=== PATIENT | female | born 1965 | race Caucasian/White ===

== ENCOUNTER 2016-11-15 06:01 | Emergency (ER) | payer BC ==
[~2016-11-15 06:01] MED LIST: ADVIL200 M1 PO; ASPIRIN81 MG PO; MULTIVITAMIN1 TAB PO; OMEGA 31 CAP PO; TOPAMAX50 MG PO
[2016-11-15] MEDS ORDERED: NEURONTIN100 M1 PO (06:18)
[2016-11-15] MEDS ORDERED: TOPROL XL25 M1 PO (06:18)
[2016-11-15] MEDS ORDERED: ULTRAM50 M1 PO (06:19)
[2016-11-15] MEDS ORDERED: PROGESTERONE100 M1 PO (06:19)
[2016-11-15 06:45] LABS: URINE BILIRUBIN NEGATIVE (NEG); URINE BLOOD LARGE (NEG); URINE GLUCOSE (UA) SMALL (NEG); URINE KETONE LARGE (NEG); URINE LEUKOCYTE ESTERASE POSITIVE (NEG); URINE NITRITE NEGATIVE (NEG); URINE PROTEIN MODERATE (NEG)
[2016-11-15 06:47] LABS: URINE APPEARANCE HAZY; URINE COLOR YELLOW
[2016-11-15 06:48] LABS: BASO % 0.2 % (0-2); HCT-HEMATOCRIT 44.9 % (34.0-49.0); HGB-HEMOGLOBIN 15.3 gm/dl (12.0-15.5); IMMATURE GRANULOCYTES ABSOLUTE 0.04 tho/cmm (0-0.03); IMMATURE GRANULOCYTES PERCENT 0.3 % (0-0.3); LYMPH % 6.9 % (20-45); MCH (MEAN CORPUSCULAR HGB) 30.1 pg (28.0-32.0); MCHC MEAN CORPUSCULAR HGB CONC 34.1 % (32.0-36.0); MCV (MEAN CELL VOLUME) 88.2 fl (82.0-96.0); MEAN PLATELET VOLUME 10.6 cmc (9.4-12.4); MONO % 4.9 % (0-12); MONOCYTE ABSOLUTE COUNT 0.7 tho/cmm (0.0-1.2); NEUTROPHILS % 87.7 % (40-80); PLATELET COUNT 305 tho/cmm (150-450); RED BLOOD COUNT 5.09 mil/cmm (4.00-5.20); WHITE BLOOD COUNT 13.7 tho/cmm (4.0-10.0)
[2016-11-15 08:14] LABS: ALBUMIN 3.4 g/dl (3.5-5.0); ALKALINE PHOSPHATASE 87 U/L (33-138); ALT/SGPT 32 U/L (12-78); ANION GAP 13 mmol/L (0-20); AST/SGOT 22 U/L (10-40); BILIRUBIN,TOTAL 0.3 mg/dl (0-1.5); BLOOD UREA NITROGEN 9 mg/dl (6-24); CALCIUM 8.9 mg/dl (8.5-10.5); CARBON DIOXIDE-VENOUS 25 mmol/L (22-32); CHLORIDE 106 mmol/l (96-110); CREATININE 0.54 mg/dl (0.50-1.10); GLUCOSE 96 mg/dL (70-110); LIPASE 111 U/L (73-393); POTASSIUM 3.7 mmol/L (3.7-5.1); SODIUM 140 mmol/L (135-145); eGFR VALUE FOR BLACK >90 mL/Min
[2016-11-15] MEDS ORDERED: NORCO 5-325 TA1 EACH PO (09:51)
== END 2016-11-15 10:00 ==
LOC: EDMED 06:01
PROVIDERS: Emergency Medicine
DX: N83.201 Unspecified ovarian cyst, right side (principal); M19.90 Unspecified osteoarthritis, unspecified site; I10 Essential (primary) hypertension; Z79.899 Other long term (current) drug therapy; Z90.89 Acquired absence of other organs
CPT/HCPCS: J1170; J2405